=== PATIENT | male | born 1975 | race Caucasian/White ===

== ENCOUNTER 2024-03-07 04:06 | Day surgery (SDC) | payer OTHER ==
[2024-03-02 14:47] VITALS: BMI 30.5
[2024-03-07] MEDS ORDERED: MIDAZOLAM HCL 2 MG/2 ML SINGLE DOSE VIAL ONE (12:32)
[2024-03-07] MEDS ORDERED: PROPOFOL 20 ML ONE (13:15)
[2024-03-07 13:39] VITALS: TEMP 97.8
[2024-03-07 15:29] VITALS: BP 139/76; PULSE 66; RESP 17
== END 2024-03-07 15:30 | disposition home or self-care (01) ==
LOC: JASU-SURG 04:06
PROVIDERS: ATTEND Urology
PROC: 0TF4XZZ Fragmentation in Left Kidney Pelvis, External Approach (ICD-10-PCS; principal; 2024-03-07 13:00)
DX: N20.0 Calculus of kidney (principal)

== ENCOUNTER 2024-04-04 05:15 | Day surgery (SDC) | payer OTHER ==
[2024-03-30 14:17] VITALS: BMI 30.5
[2024-04-04] MEDS ORDERED: MIDAZOLAM HCL 2 MG/2 ML SINGLE DOSE VIAL ONE (14:20)
[2024-04-04] MEDS ORDERED: PROPOFOL 20 ML ONE (14:22)
[2024-04-04 15:00] VITALS: RESP 18
[2024-04-04 16:33] VITALS: BP 129/88; PULSE 74; TEMP 97.6
== END 2024-04-04 16:25 | disposition home or self-care (01) ==
LOC: JASU-SURG 05:15
PROVIDERS: ATTEND Urology
PROC: 0TF4XZZ Fragmentation in Left Kidney Pelvis, External Approach (ICD-10-PCS; principal; 2024-04-04 14:25)
DX: N20.0 Calculus of kidney (principal)